=== PATIENT | female | born 1940 | race Caucasian/White ===

== ENCOUNTER 2016-10-15 05:20 | Day surgery (SDC) | payer OTHER ==
--- NOTE | 2016-10-13 12:10 | EKG Report ---
Test Performed on : 10/13/2016 11:49:44 AM Test Reason : PAT Blood Pressure : / mmHG Vent. Rate : 085 BPM Atrial Rate : 091 BPM P-R Int : 000 ms QRS Dur : 164 ms QT Int : 420 ms P-R-T Axes : 000 -84 093 degrees QTc Int : 499 ms Ventricular-paced rhythm Abnormal ECG When compared with ECG of 19-SEP-2014 14:38, Vent. rate has decreased BY 7 BPM Confirmed by Sushil Geronimo DO ([id number]) on 10/13/2016 6:58:58 PM
[2016-10-13 12:27] LABS: HEMATOCRIT 42.4 % (37.0-47.0); HEMOGLOBIN 14.5 g/dL (12.0-16.0); MCH 31.4 PG (27-31); MCHC 34.2 g/dL (33-37); MCV 91.8 FL (81-99); MPV 11.3 FL (7.4-10.4); RBC 4.62 XMIL (4.2-5.4)
[2016-10-13 12:46] LABS: CALCIUM 9.6 mg/dL (8.8-10.2); POTASSIUM 4.3 mmol/L (3.5-5.1)
[2016-10-15] MEDS ORDERED: LR 1,000 ML ONE (06:10)
[2016-10-15] MEDS ORDERED: KEFZOL 1 GM/D5W 50 ML ONE (06:10)
[2016-10-15] MEDS ORDERED: SENSORCAINE 0.25%/EPI 1:200,000 ONE (06:33)
[2016-10-15] MEDS ORDERED: FENTANYL ONE (08:50)
[2016-10-15] MEDS ORDERED: DIPRIVAN 1% ONE (08:50)
[2016-10-15] MEDS: MORPHINE ONE ×2 (09:03→09:10)
[2016-10-15] MEDS ORDERED: LR 500 ML ONE (09:08)
[2016-10-15] MEDS ORDERED: NORCO-7.5 ONE (09:42)
[2016-10-15] MEDS ORDERED: LUBRIFRESH PM OPH OINTMENT ONE (10:18)
[2016-10-15] MEDS ORDERED: ZOFRAN ONE (10:19)
[2016-10-15] MEDS ORDERED: XYLOCAINE 2% JELLY ONE (10:19)
[2016-10-15] MEDS ORDERED: DECADRON ONE (10:19)
[2016-10-15] MEDS ORDERED: QUELICIN (DOSE) ONE (10:19)
[2016-10-15] MEDS ORDERED: XYLOCAINE-MPF 2% ONE (10:19)
[2016-10-15 10:48] VITALS: BP 119/51
--- NOTE | 2016-10-15 13:13 | OPERATIVE NOTE ---
PROCEDURE DATE: 10/15/2016 PROCEDURE PERFORMED: Excision of subcutaneous lipoma, right shoulder (22 x 15 x 4 cm); excision of left posterior axillary line subcutaneous lipoma (5 x 4 x 1.5 cm). SURGEON: Jovi Lewis MD FURNITURE MOVER DRIVER: Jennifer Rosen RN PREOPERATIVE DIAGNOSES: 1. Right shoulder lipoma. 2. Left posterior axillary lipoma. POSTOPERATIVE DIAGNOSES: 1. Right shoulder lipoma. 2. Left posterior axillary lipoma. DESCRIPTION OF PROCEDURE: Satisfactory general endotracheal anesthesia was achieved. The patient was placed in decubitus position with the right side up. The right shoulder was prepped and draped in a sterile fashion. We anesthetized the skin with 0.25% Marcaine with epinephrine in a vertical fashion. We then made a 20 cm vertical incision. We carried the incision into the subcutaneous tissue. Satisfactory hemostasis was achieved with bipolar cautery. We then sharply incised the connective tissue to the lipoma. We then bluntly dissected it out circumferentially, lysing the connections to the subcutaneous tissue. We were able to remove the multilobulated lipoma sharply and it measured 22 x 15 x 4 cm. We achieved satisfactory hemostasis with bipolar cautery. Because of the size of the lipoma, it was felt we should leave a Marck drain in the subcutaneous tissue. We brought it out toward the inferior axilla. We then closed the subcutaneous tissue with interrupted 3-0 Polysorb. The skin was closed with a 4-0 Polysorb subcuticular stitch. Suture of 3-0 nylon was used to secure the drain at the skin level. A sterile dressing was applied. We then had to change positions of the patient and turned her into decubitus position with the left side up, and the left posterior axilla was prepped and draped in a sterile fashion. I regowned and gloved. This time, we made an 8 cm transverse incision in the posterior axilla and carried our incision into the subcutaneous fat. We again sharply divided the tissue connecting down to the lipoma. It was a single lobulated lipoma, measuring 5 x 4 x 1.5 cm. We achieved satisfactory hemostasis with bipolar cautery. We then placed 3-0 Polysorb in subcutaneous tissue and closed this skin incision with a 4-0 Polysorb subcuticular stitch. A sterile dressing was applied. She tolerated procedure satisfactorily and was sent to the recovery room in satisfactory condition.
== END 2016-10-15 10:45 | disposition home or self-care (01) ==
LOC: OPS 05:20
PROVIDERS: ATTEND Surgery
DX: D17.21 Benign lipomatous neoplasm of skin and subcutaneous tissue of right arm (principal); D17.79 Benign lipomatous neoplasm of other sites; E78.00 Pure hypercholesterolemia, unspecified; I10 Essential (primary) hypertension; E21.0 Primary hyperparathyroidism
CPT/HCPCS: 80048; 85027; 88304; 93005; 93010; J0330; J0690; J1100; J2270; J2405; J3010; J7120